=== PATIENT | male | born 1970 | race Two or more races ===

== ENCOUNTER 2019-06-28 10:29 | Emergency (ER) | payer MEDICAID, OTHER ==
[~2019-06-28] VITALS: Ht 180.3 cm; Wt 83.9 kg
[2019-06-28 12:01] LABS: Basophils # (auto) 0 uL; Basophils % (auto) 0.3 % (0.0-2.0); Eosinophils # (auto) 0 uL; Eosinophils % (auto) 0.4 % (0.0-7.0); Hematocrit 48.4 % (41.0-53.0); Hemoglobin 16.4 g/dL (13.5-17.5); Lymphocytes # (auto) 1.7 uL; Lymphocytes % (auto) 15.7 % (10.0-50.0); Mean Corpuscular Volume 85.3 fL (80.0-100.0); Monocytes # (auto) 0.7 uL; Monocytes % (auto) 6.7 % (0.0-12.0); Neutrophils # (auto) 8.5 uL; Neutrophils % (auto) 76.9 % (37.0-80.0); Nucleated Red Blood Cells % 0.5 %; Platelet Count (auto) 280 10^3/uL (140-450); Red Blood Cells 5.67 10^6/uL (4.5-5.90); Red Cell Distribution Width 13.3 % (11.8-14.3); White Blood Cell 11.1 10^3/uL (4.4-10.8)
[2019-06-28 12:18] LABS: Calcium 9.1 mg/dL (8.5-10.1); Potassium 3.8 mmol/L (3.5-5.1)
[2019-06-28 12:21] LABS: BUN/Creatinine Ratio 14.1; Bilirubin, Total 0.5 mg/dL (0.2-1.0); Total Protein 7.7 g/dL (6.4-8.2)
[2019-06-28 15:15] LABS: Urine Bacteria NONE SEEN /hpf (None Seen); Urine Blood Negative /uL (Negative); Urine Specific Gravity 1.018 (1.001-1.035); Urine WBC 1 /hpf (0 - 3)
[2019-06-28 15:26] LABS: Alcohol, Urine < 3.0 mg/dL (0-5); Amphetamine Screen, Urine NEGATIVE (NEGATIVE); Barbiturate Scree,Urine NEGATIVE (NEGATIVE); Benzodiazephine Screen, Urine NEGATIVE (NEGATIVE); Cannabinoid Screen, Urine NEGATIVE (NEGATIVE); Cocaine Screen, Urine NEGATIVE (NEGATIVE); Opiate Scree,Urine NEGATIVE (NEGATIVE); Phencyclidine Screen, Urine NEGATIVE (NEGATIVE)
[2019-06-28 15:30] VITALS: BP 143/89
[2019-06-28] MEDS ORDERED: PHENYTOIN SODIUM 100 MG CAP PO ONE (16:15)
== END 2019-06-28 16:31 | disposition home or self-care (01) ==
LOC: ER 10:29 → EDBD 10:29 → ER 16:31
DX: G40.909 Epilepsy, unspecified, not intractable, without status epilepticus (principal); R89.2 Abnormal level of other drugs, medicaments and biological substances in specimens from other organs, systems and tissues
CPT/HCPCS: 36415; 70450; 80053; 80185; 80307; 81001; 85025; 93005

== ENCOUNTER 2022-11-03 18:57 | Emergency (ER) | payer MEDICAID ==
[~2022-11-03] VITALS: Ht 180.3 cm; Wt 81.1 kg
[2022-11-03 19:25] VITALS: BP 131/96
[2022-11-03] MEDS ORDERED: AMOX500C2 PO (19:32)
[2022-11-03] MEDS ORDERED: LORA-622 PO (19:32)
[2022-11-03] MEDS ORDERED: FLUT1SPR5 (19:32)
== END 2022-11-03 21:19 | disposition home or self-care (01) ==
LOC: ER 18:57
DX: J01.80 Other acute sinusitis (principal); Z79.899 Other long term (current) drug therapy

== ENCOUNTER 2022-11-08 08:36 | Emergency (ER) | payer MEDICAID ==
[~2022-11-08] VITALS: Ht 180.3 cm; Wt 79.5 kg
[~2022-11-08 08:36] MED LIST: AMOX500C2 PO; FLUT1SPR5; LORA-622 PO
[2022-11-08 09:00] VITALS: BP 141/93
[2022-11-08] MEDS ORDERED: ACET500T58 PO (10:28)
[2022-11-08] MEDS ORDERED: BENZ100C97 PO (10:28)
[2022-11-08] MEDS ORDERED: LORA10CA PO (10:28)
== END 2022-11-08 10:42 | disposition home or self-care (01) ==
LOC: ER 08:36
DX: J06.9 Acute upper respiratory infection, unspecified (principal); Z20.822 Contact with and (suspected) exposure to COVID-19
CPT/HCPCS: 36415; 71045; 87426; 87804

== ENCOUNTER 2023-04-24 13:10 | Emergency (ER) | payer SELFPAY ==
[~2023-04-24] VITALS: Ht 180.3 cm; Wt 81.8 kg
[~2023-04-24 13:10] MED LIST changes: +ACET500T58 PO; +BENZ100C97 PO; +LORA10CA PO
[2023-04-24 16:12] VITALS: BP 150/90; PULSE 75; RESP 18; TEMP 97.2; O2SAT 97
[2023-04-24] MEDS ORDERED: IBUP-1455 PO (18:04)
== END 2023-04-24 18:35 | disposition home or self-care (01) ==
LOC: ER 13:10
DX: M79.644 Pain in right finger(s) (principal); Z79.899 Other long term (current) drug therapy; W23.0XXA Caught, crushed, jammed, or pinched between moving objects, initial encounter; Y93.89 Activity, other specified; Y92.89 Other specified places as the place of occurrence of the external cause; Y99.8 Other external cause status
CPT/HCPCS: 73130

== ENCOUNTER 2023-06-03 23:17 | Emergency (ER) | payer SELFPAY ==
[~2023-06-03] VITALS: Ht 180.3 cm; Wt 85.5 kg
[~2023-06-03 23:17] MED LIST changes: +IBUP-1455 PO
[2023-06-03 23:33] VITALS: PULSE 102; RESP 20; O2SAT 96
[2023-06-04 01:28] LABS: Basophils # (auto) 0 10 ^3/uL (0-0.2); Basophils % (auto) 0.1 % (0.0-2.0); Eosinophils # (auto) 0 10 ^3/uL (0-0.8); Eosinophils % (auto) 0.2 % (0.0-7.0); Hematocrit 47.6 % (41.0-53.0); Hemoglobin 16.2 g/dL (13.5-17.5); Lymphocytes # (auto) 1.4 10 ^3/uL (0.4-5.4); Lymphocytes % (auto) 8.9 % (10.0-50.0); Mean Corpuscular Hemoglobin 29.4 pg (28.0-32.0); Mean Corpuscular Volume 86.4 fL (80.0-100.0); Monocytes # (auto) 0.7 10 ^3/uL (0-1.3); Monocytes % (auto) 4.8 % (0.0-12.0); Neutrophils # (auto) 13.4 10 ^3/uL (1.6-8.6); Nucleated Red Blood Cells % 0.2 %; Red Blood Cells 5.51 10^6/uL (4.5-5.90); White Blood Cell 15.6 10^3/uL (4.4-10.8)
[2023-06-04 01:43] LABS: Alanine Aminotransferase 52 U/L (7-40); Albumin 4.8 g/dL (3.2-4.8); Alkaline Phosphatase 107 U/L (46-116); Anion Gap 9 (5-15); Aspartate Aminotransferase 34 U/L (13-40); BUN/Creatinine Ratio 11.2 (10.0-20.0); Bilirubin, Total 0.4 mg/dL (0.2-1.0); Blood Urea Nitrogen 10 mg/dL (9-23); Calcium 9.4 mg/dL (8.7-10.4); Carbon Dioxide 25 mmol/L (20-30); Chloride 104 mmol/L (98-107); Glucose 108 mg/dL (74-106); Potassium 3.8 mmol/L (3.5-5.1); Sodium 138 mmol/L (136-145); Total Protein 7.8 g/dL (5.7-8.2)
[2023-06-04] MEDS ORDERED: levETIRAcetam 1000 mg/100ml 100 ML IV ONE (02:30)
[2023-06-04 03:06] LABS: Magnesium 2.1 mg/dL (1.6-2.6)
[2023-06-04 04:01] LABS: Blood Alcohol < 3.0 mg/dL (<10)
[2023-06-04 05:00] VITALS: BP 141/87; PULSE 86; RESP 12; O2SAT 98
== END 2023-06-04 06:58 | disposition home or self-care (01) ==
LOC: ER 23:17 → EDUNIT# 23:17 → EDBD 23:17 → ER 06-04 06:58
DX: G40.909 Epilepsy, unspecified, not intractable, without status epilepticus (principal); Z79.899 Other long term (current) drug therapy
CPT/HCPCS: 36415; 70450; 72125; 80053; 80320; 83735; 85025; 96374; 99285; J1953

== ENCOUNTER 2023-09-27 08:59 | Inpatient (IN) | payer MEDICAID, OTHER ==
[~2023-09-27] VITALS: Ht 180.3 cm; Wt 79.2 kg
[2023-09-27 09:51] LABS: Basophils # (auto) 0 10 ^3/uL (0-0.2); Basophils % (auto) 0.6 % (0.0-2.0); Eosinophils # (auto) 0.1 10 ^3/uL (0-0.8); Eosinophils % (auto) 1.2 % (0.0-7.0); Hematocrit 44.4 % (41.0-53.0); Lymphocytes # (auto) 2.3 10 ^3/uL (0.4-5.4); Lymphocytes % (auto) 29.9 % (10.0-50.0); Mean Corpuscular Hemoglobin 29.2 pg (28.0-32.0); Mean Corpuscular Hgb Conc. 33.9 g/dL (32.0-36.0); Mean Corpuscular Volume 86.3 fL (80.0-100.0); Monocytes # (auto) 0.6 10 ^3/uL (0-1.3); Monocytes % (auto) 7.4 % (0.0-12.0); Neutrophils # (auto) 4.7 10 ^3/uL (1.6-8.6); Neutrophils % (auto) 60.9 % (37.0-80.0); Nucleated Red Blood Cells % 0.1 %; Red Blood Cells 5.14 10^6/uL (4.5-5.90); Red Cell Distribution Width 13.1 % (11.8-14.3); White Blood Cell 7.7 10^3/uL (4.4-10.8)
[2023-09-27 10:13] LABS: Chloride 107 mmol/L (98-107); Potassium 4.3 mmol/L (3.5-5.1); Sodium 138 mmol/L (136-145)
[2023-09-27 10:14] LABS: Anion Gap 6 (5-15); Carbon Dioxide 25 mmol/L (20-30)
[2023-09-27 10:15] LABS: Calcium 9.2 mg/dL (8.5-10.1)
[2023-09-27 10:19] LABS: BUN/Creatinine Ratio 12.5 (10.0-20.0); Blood Urea Nitrogen 11 mg/dL (9-23); Glucose 98 mg/dL (74-106)
[2023-09-27] MEDS ORDERED: PANT40TA2 PO (10:24)
[2023-09-27] MEDS: DONNATAL 5ml ORAL Elix (BELLADONNA ALK-PHENOBARB) PO ONE (12:45)
[2023-09-27] MEDS: LIDOCAINE VISCOUS 2% 15ML UD PO ONE (12:46)
[2023-09-27] MEDS: MAALOX PLUS or MAALOX 30 ML PO ONE (12:47)
[2023-09-27] MEDS ORDERED: LEVE500T40 PO (14:33)
[2023-09-27] MEDS ORDERED: MORPHINE SULFATE INJ 2 MG/ml SYRG IV PRN (15:00)
[2023-09-27] MEDS: PANTOPRAZOLE 40 MG/10 ML VIAL INJ IV ONE (15:00)
[2023-09-27] MEDS ORDERED: DOCUSATE SOD 100 MG CAP PO PRN (15:00)
[2023-09-27] MEDS ORDERED: ONDANSETRON HCL 4 MG/2 ML VIAL IV PRN (15:00)
[2023-09-27 16:29] LABS: Urine Bacteria None Seen /hpf (None Seen)
[2023-09-27 16:40] LABS: Urine Blood Negative /uL (Negative); Urine Clarity Clear (Clear); Urine Color Light-Yellow (Yellow); Urine Protein, UAD Negative (Negative); Urine Specific Gravity 1.025 (1.001-1.035); Urine Urobilinogen Normal (Negative); Urine WBC 1 /hpf (0 - 3); Urine pH 5.5 (5.0-9.0)
[2023-09-27] MEDS: metroNIDAZOLE 500MG/100ML 100 ML IV ONE (19:45)
[2023-09-27] MEDS: cefTRIAXone 1GM/50ML D5W 50 ML IV ONE (19:45)
[2023-09-27] MEDS: levETIRAcetam 500 MG TAB PO SCH (22:00)
[2023-09-27 22:42] VITALS: BP 165/103; PULSE 76; RESP 18; TEMP 98.1; O2SAT 94
[2023-09-27] MEDS ORDERED: PNEUMOCOCCAL VACC POLYS 25 MCG/0.5 ML VIAL IM ONE (23:15)
[2023-09-27] MEDS: SODIUM CHLORIDE 0.9% 1,000 ML IV SCH (23:57)
[2023-09-27] MEDS: hydrALAZINE HCL 20 MG/ML VL IV PRN (23:57)
[2023-09-28] MEDS ORDERED: INFLUENZA QUAD 2023-2024 0.5 ML SYRG IM ONE (00:30)
[2023-09-28 01:00] VITALS: BP 137/75; PULSE 80; RESP 18; TEMP 98.9; O2SAT 96
[2023-09-28] MEDS: metroNIDAZOLE 500MG/100ML 100 ML IV SCH (03:48)
[2023-09-28 05:00] VITALS: BP 140/80; PULSE 78; RESP 18; TEMP 98; O2SAT 96
[2023-09-28 05:36] LABS: Basophils # (auto) 0 10 ^3/uL (0-0.2); Basophils % (auto) 0.3 % (0.0-2.0); Eosinophils # (auto) 0.1 10 ^3/uL (0-0.8); Eosinophils % (auto) 1.3 % (0.0-7.0); Hemoglobin 14.7 g/dL (13.5-17.5); Lymphocytes # (auto) 2.5 10 ^3/uL (0.4-5.4); Lymphocytes % (auto) 27.9 % (10.0-50.0); Mean Corpuscular Hemoglobin 29.6 pg (28.0-32.0); Mean Corpuscular Hgb Conc. 34.3 g/dL (32.0-36.0); Mean Corpuscular Volume 86.4 fL (80.0-100.0); Monocytes # (auto) 0.6 10 ^3/uL (0-1.3); Monocytes % (auto) 6.4 % (0.0-12.0); Neutrophils # (auto) 5.8 10 ^3/uL (1.6-8.6); Neutrophils % (auto) 64.1 % (37.0-80.0); Red Blood Cells 4.98 10^6/uL (4.5-5.90); Red Cell Distribution Width 12.9 % (11.8-14.3); White Blood Cell 9.1 10^3/uL (4.4-10.8)
[2023-09-28 05:42] LABS: Alanine Aminotransferase 40 U/L (7-40); Albumin 3.9 g/dL (3.2-4.8); Alkaline Phosphatase 99 U/L (46-116); Anion Gap 9 (5-15); Aspartate Aminotransferase 28 U/L (13-40); Blood Urea Nitrogen 9 mg/dL (9-23); Calcium 9.3 mg/dL (8.7-10.4); Carbon Dioxide 23 mmol/L (20-30); Chloride 109 mmol/L (98-107); Glucose 95 mg/dL (74-106); Potassium 4.1 mmol/L (3.5-5.1); Sodium 141 mmol/L (136-145)
[2023-09-28 05:43] LABS: Bilirubin, Total 0.3 mg/dL (0.2-1.0); Total Protein 6.2 g/dL (5.7-8.2)
[2023-09-28] MEDS: cefTRIAXone 1GM/50ML D5W 50 ML IV SCH (08:36)
[2023-09-28 09:00] VITALS: BP 139/78; PULSE 78; RESP 20; TEMP 98.1; O2SAT 96
[2023-09-28] MEDS: PANTOPRAZOLE 40 MG/10 ML VIAL INJ IV SCH (09:29)
[2023-09-28] MEDS: LORATADINE 10 MG TAB PO SCH (09:34)
[2023-09-28] MEDS ORDERED: METR-344 PO (14:35)
[2023-09-28] MEDS ORDERED: LEVO500T91 PO (14:35)
[2023-09-29 08:06] LABS: PSA Free 0.36 ng/mL; Prostate Specific Antigen 1.8 ng/mL (0.0-4.0)
[2023-10-01 08:53] LABS: Hepatitis B Surface Antigen Negative (Negative)
[2023-10-01 09:13] LABS: Hepatitis C Antibody Negative (Negative)
== END 2023-09-28 16:02 | disposition home or self-care (01) | DRG 690 ==
LOC: ER 08:59 → WEST WING 14:54 → OVERFLOW 14:54 → WEST WING 22:36
PROVIDERS: ADMIT Nurse Practitioner Family; ATTEND Nurse Practitioner Acute Care
DX: N30.90 Cystitis, unspecified without hematuria (principal); K52.9 Noninfective gastroenteritis and colitis, unspecified; K57.30 Diverticulosis of large intestine without perforation or abscess without bleeding; K29.70 Gastritis, unspecified, without bleeding; K76.0 Fatty (change of) liver, not elsewhere classified; G40.909 Epilepsy, unspecified, not intractable, without status epilepticus; N40.0 Benign prostatic hyperplasia without lower urinary tract symptoms; K59.00 Constipation, unspecified; Z79.899 Other long term (current) drug therapy
CPT/HCPCS: 36415; 74176; 80048; 80053; 81001; 82378; 84154; 85025; 86803; 87340; 96361; 96374; C9113; G0378; J3490

== ENCOUNTER 2023-10-13 10:36 | Emergency (ER) | payer OTHER ==
[~2023-10-13] VITALS: Ht 180.3 cm; Wt 76.5 kg
[~2023-10-13 10:36] MED LIST changes: -ACET500T58 PO; -AMOX500C2 PO; -BENZ100C97 PO; -FLUT1SPR5; -IBUP-1455 PO; +LEVE500T40 PO; +LEVO500T91 PO; -LORA-622 PO; -LORA10CA PO; +METR-344 PO
[2023-10-13 10:50] VITALS: BP 130/88; PULSE 78; RESP 16; O2SAT 98
[2023-10-13] MEDS ORDERED: KEP500T PO (11:08)
== END 2023-10-13 11:38 | disposition home or self-care (01) ==
LOC: ER 10:36
DX: R56.9 Unspecified convulsions (principal); Z76.0 Encounter for issue of repeat prescription; Z79.2 Long term (current) use of antibiotics; Z79.899 Other long term (current) drug therapy

== ENCOUNTER 2023-12-03 11:41 | Emergency (ER) | payer MEDICAID, OTHER ==
[~2023-12-03] VITALS: Ht 180.3 cm; Wt 79.1 kg
[~2023-12-03 11:41] MED LIST changes: +KEP500T PO
[2023-12-03 13:14] VITALS: BP 125/88; PULSE 96; RESP 16; TEMP 98; O2SAT 98
[2023-12-03] MEDS ORDERED: LEVE500T40 PO (14:16)
== END 2023-12-03 14:24 | disposition home or self-care (01) ==
LOC: ER 11:41
DX: Z76.0 Encounter for issue of repeat prescription (principal); R56.9 Unspecified convulsions